=== PATIENT | female | born 1955 | race Caucasian/White ===

== ENCOUNTER 2024-05-28 12:44 | Outpatient (AMB) | payer MEDICARE, SELFPAY ==
--- NOTE | 2024-05-28 12:53 | A.OFFVIS_ITS ---
Vital Signs 05/28/24 12:57 Height 5 ft 2 in Weight 213 lb 8 oz BMI 39.0 BP 138/80 Blood Pressure Location Lt brachial Position Sitting Pulse 89 Pulse Source Pulse Oximeter Pulse Oximetry (%) 95 Oxygen Delivery Method Room Air Intake Visit Reasons: OSTEOARTHRITIS Intake Note: patient statednew pain in left side of neck on/off x2m Allergies codeine Allergy (Mild, Verified 05/28/24 12:59) intolerance latex Allergy (Mild, Verified 05/28/24 13:00) Hives shellfish derived Allergy (Mild, Verified 05/28/24 13:00) Unknown HPI HPI OSTEOARTHRITIS: Details: Last cortisone injections in bilateral knees lasted 6 months. She uses Tylenol 1000 mg b.i.d.. She also uses diclofenac gel PRN. She is experiencing neck discomfort with range of motion in last couple of months. [facility], [facility] Medical History Asthma Osteoarthritis, localized, knee Osteoarthritis, localized, hand Cervicalgia Surgical History Hx of cholecystectomy H/O colonoscopy Physical Exam Vital Signs: Last Vital Signs Pulse 89 05/28/24 12:57 BP 138/80 05/28/24 12:57 Pulse Ox 95 05/28/24 12:57 Oxygen Delivery Method Room Air 05/28/24 12:57 BMI result Body Mass Index 39.0 Const Other: General: Comfortable Skin: No lesions seen MSK: Tender trapezius bilaterally. No tenderness of cervical spinous process or paraspinal muscles. She has limited full flexion with pain. She has full cervical rotation but with pain. She has full extension of cervical spine. Tender to palpate bilateral knees. Bilateral hypertrophy of knees. Knee flexion 90 degrees bilateral. Office Procedures AMB Joint Injection/Aspiration Joint Injection/Aspiration Details: Right knee joint Prep: site was prepped using aseptic technique Injected: 40 mg of, Kenalog, with 1 mL of and 1% plain lidocaine Procedure: The patient tolerated the procedure well. Postprocedure protocol was discussed with patient. Coding 04046 - Bilateral Large Joint Procedure code (CPT) selection complete AMB Joint Injection/Aspiration Joint Injection/Aspiration Details: Left knee joint Prep: site was prepped using aseptic technique Injected: 40 mg of, Kenalog, with 1 mL of and 1% plain lidocaine Procedure: The patient tolerated the procedure well. Postprocedure protocol was discussed with patient. Coding 10545 - Bilateral Large Joint Procedure code (CPT) selection complete Office Meds lidocaine (PF) 10 mg/mL (1 %) injection solution Performing Provider: Win Martinez MD Performing Location: [facility] [place] [facility] Administered by: Win Martinez MD on 05/28/24 22:10 Dose Route Admin Location Dispensed Lot Number Expiration Date [facility] [employer] 10 mg Infiltration 2 mL [id number] [employer] Kenalog 40 mg/mL suspension for injection Performing Provider: Win Martinez MD Performing Location: [facility] [place] [facility] Administered by: Win Martinez MD on 05/28/24 22:10 Dose Route Admin Location Dispensed Lot Number Expiration Date [facility] [employer] 40 mg intra-articular 1 mL AP [id number] [employer] lidocaine (PF) 10 mg/mL (1 %) injection solution Performing Provider: Win Martinez MD Performing Location: [facility] [place] [facility] Administered by: Win Martinez MD on 05/28/24 22:10 Dose Route Admin Location Dispensed Lot Number Expiration Date [facility] [employer] 10 mg Infiltration 2 mL [id number] [employer] Kenalog 40 mg/mL suspension for injection Performing Provider: Win Martinez MD Performing Location: [facility] [place] [facility] Administered by: Win Martinez MD on 05/28/24 22:10 Dose Route Admin Location Dispensed Lot Number Expiration Date [facility] [employer] 40 mg intra-articular 1 mL AP [id number] [employer] Assessment & Plan Assessment & Plan (1) Osteoarthritis of knees, bilateral: Comment: Pain is uncontrolled. Code(s): M17.0 - Bilateral primary osteoarthritis of knee Category: Medical Qualifiers: Osteoarthritis type: primary Qualified Code(s): M17.0 - Bilateral primary osteoarthritis of knee Plan: Patient received bilateral knee cortisone injections Continue Tylenol 1000 mg b.i.d. Continue diclofenac gel 1% p.r.n. 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 We discussed conservative management. Code(s): S46.819A - Strain of other muscles, fascia and tendons at shoulder and upper arm level, unspecified arm, initial encounter Category: Medical Qualifiers: Encounter type: initial encounter Laterality: unspecified laterality Qualified Code(s): S46.819A - Strain of other muscles, fascia and tendons at shoulder and upper arm level, unspecified arm, initial encounter Plan: PT ordered. PT requisition given to patient as patient prefers to have PT locally in [place]. Continue to apply heat to neck PRN Return to clinic in 6 months Orders: Orders PT Evaluation and Treatment Today S46.819A - Strain of other muscles, fascia and tendons at shoulder and upper arm level, unspecified arm, initial encounter AMB Joint Injection/Aspiration Today M17.0 - Bilateral primary osteoarthritis of knee AMB Joint Injection/Aspiration Today M17.0 - Bilateral primary osteoarthritis of knee Medications: New Kenalog (triamcinolone acetonide) 40 mg intra-articular ONCE 1 mL 0RF NS M17.0 - Bilateral primary osteoarthritis of knee lidocaine (PF) 10 mg Infiltration ONCE 1 mL 0RF M17.0 - Bilateral primary osteoarthritis of knee lidocaine (PF) 10 mg Infiltration ONCE 1 mL 0RF M17.0 - Bilateral primary osteoarthritis of knee Kenalog (triamcinolone acetonide) 40 mg intra-articular ONCE 1 mL 0RF NS M17.0 - Bilateral primary osteoarthritis of knee Coding Level of Care Code Est Pt Level 4 (61470) Complex EM visit Add On G2211 Diagnoses Primary osteoarthritis of both knees M17.0 Osteoarthritis type: primary Strain of trapezius muscle, unspecified laterality, initial encounter S46.819A Encounter type: initial encounter Laterality: unspecified laterality CPT Codes Coding - 94857 - Bilateral Large Joint: 71565 - Bilateral Large Joint ([id number]) Coding - 39787 - Bilateral Large Joint: 58530 - Bilateral Large Joint ([id number])
[2024-05-28 12:57] VITALS: BP 138/80; PULSE 89; O2SAT 95; BMI 39.0
== END 2024-05-28 13:55 | disposition home or self-care (01) ==
PROVIDERS: PCP Family Medicine; Visit Provider Internal Medicine Rheumatology
DX: M17.0 Bilateral primary osteoarthritis of knee (principal); S46.819A Strain of other muscles, fascia and tendons at shoulder and upper arm level, unspecified arm, initial encounter
CPT/HCPCS: 20610; 99214; G2211

== ENCOUNTER → 2024-05-28 12:44 | Outpatient (BNVA) | payer MEDICARE, SELFPAY | PROVIDERS: PCP Family Medicine; Visit Provider Internal Medicine Rheumatology | DX: M17.0 Bilateral primary osteoarthritis of knee (principal); S46.819A Strain of other muscles, fascia and tendons at shoulder and upper arm level, unspecified arm, initial encounter | CPT/HCPCS: 20610; 99212; J2003; J3300 ==

== ENCOUNTER 2024-11-26 12:36 | Outpatient (AMB) | payer MEDICARE, SELFPAY ==
--- NOTE | 2024-11-26 12:38 | A.OFFVIS_ITS ---
Vital Signs 11/26/24 12:43 Height 5 ft 2 in Weight 215 lb BMI 39.3 BP 130/76 Blood Pressure Location Rt brachial Position Sitting Pulse 88 Pulse Source Pulse Oximeter Pulse Oximetry (%) 97 Oxygen Delivery Method Room Air Intake Visit Reasons: 6 mo follow up Intake Note: patient stated new pain in left side of neck on/off x2m Allergies codeine Allergy (Mild, Verified 11/26/24 12:44) intolerance latex Allergy (Mild, Verified 11/26/24 12:44) Hives shellfish derived Allergy (Mild, Verified 11/26/24 12:44) Unknown HPI HPI 6 mo follow up: Details: Knee pain started acting up after her trip from [facility], 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 She was walking a lot during her trip. She continues to use Tylenol Arthritis 1300 mg twice a day and diclofenac gel PRN pain without benefit. [facility] Medical History Asthma Osteoarthritis, localized, knee Osteoarthritis, localized, hand Cervicalgia Surgical History Hx of cholecystectomy H/O colonoscopy Physical Exam Vital Signs: Last Vital Signs Pulse 88 11/26/24 12:43 BP 130/76 11/26/24 12:43 Pulse Ox 97 11/26/24 12:43 Oxygen Delivery Method Room Air 11/26/24 12:43 BMI result Body Mass Index 39.3 Const Other: General: Comfortable Skin: No lesions seen MSK: Tender to palpate bilateral knees. Right knee [id number] effusion with Church's cyst present. Bilateral hypertrophy of knees. Knee flexion 90 degrees bilateral. Office Procedures AMB Joint Injection/Aspiration Coding 61738 - Bilateral Large Joint Procedure code (CPT) selection complete AMB Joint Injection/Aspiration Joint Injection/Aspiration Details: Bilateral knee joints Prep: site was prepped using aseptic technique Injected into each joint: 40 mg of, Kenalog, with 1 mL of and 1% plain lidocaine Procedure: Informed verbal consent was obtained. The patient tolerated the procedure well. Postprocedure protocol was discussed with patient. Coding 80752 - Bilateral Large Joint Procedure code (CPT) selection complete Office Meds lidocaine (PF) 10 mg/mL (1 %) injection solution Performing Provider: Win Martinez MD Performing Location: [facility] [place] [facility] Administered by: Win Martinez MD on 11/26/24 14:51 Dose Route Admin Location Dispensed Lot Number Expiration Date [facility] [employer] 20 mg Infiltration 2 mL [id number] [employer] Total Dispensed Waste 2 mL 0 % Kenalog 40 mg/mL suspension for injection Performing Provider: Win Martinez MD Performing Location: [facility] [place] [facility] Administered by: Win Martinez MD on 11/26/24 14:51 Dose Route Admin Location Dispensed Lot Number Expiration Date [facility] [employer] 40 mg intra-articular 1 mL [place] [id number] L [employer] Total Dispensed Waste 1 mL 0 % lidocaine (PF) 10 mg/mL (1 %) injection solution Performing Provider: Win Martinez MD Performing Location: [facility] [place] [facility] Administered by: Win Martinez MD on 11/26/24 14:51 Dose Route Admin Location Dispensed Lot Number Expiration Date [facility] [employer] 20 mg Infiltration 2 mL [id number] [employer] Total Dispensed Waste 2 mL 0 % Kenalog 40 mg/mL suspension for injection Performing Provider: Win Martinez MD Performing Location: [facility] [place] [facility] Administered by: Win Martinez MD on 11/26/24 14:51 Dose Route Admin Location Dispensed Lot Number Expiration Date [facility] [employer] 40 mg intra-articular 1 mL [place] [id number] L [employer] Total Dispensed Waste 1 mL 0 % Assessment & Plan Assessment & Plan (1) Osteoarthritis of knees, bilateral: Comment: Pain is uncontrolled. Code(s): M17.0 - Bilateral primary osteoarthritis of knee Category: Medical Qualifiers: Osteoarthritis type: primary Qualified Code(s): M17.0 - Bilateral primary osteoarthritis of knee Plan: Patient received bilateral cortisone injections this visit Continue Tylenol 1300 mg twice a day Continue diclofenac gel 1% applied to affected area PRN pain Continue to ice knee as needed Continue home exercise program Return to clinic in 6 months Orders: Orders AMB Joint Injection/Aspiration Today M17.0 - Bilateral primary osteoarthritis of knee AMB Joint Injection/Aspiration Today M17.0 - Bilateral primary osteoarthritis of knee Medications: Changed From diclofenac sodium 1% apply to single elbow, wrist or hand; for hand includes palm/fingers/back of hand 2 grams topical QID To diclofenac sodium 1% apply to affected area every 4-6 hours PRN pain 2 grams topical QID 100 grams 11RF From diclofenac sodium 1% apply to affected area every 4-6 hours PRN pain 2 grams topical QID 100 grams 11RF To diclofenac sodium 1% apply to affected area every 4-6 hours PRN pain. Dispense this rx 4 grams topical QID 100 grams 11RF Coding Level of Care Code Est Pt Level 3 (72390) Complex EM visit Add On G2211 Diagnoses Primary osteoarthritis of both knees M17.0 Osteoarthritis type: primary CPT Codes Coding - 69479 - Bilateral Large Joint: 81459 - Bilateral Large Joint ([id number]) Coding - 46351 - Bilateral Large Joint: 42795 - Bilateral Large Joint ([id number])
[2024-11-26 12:43] VITALS: BP 130/76; PULSE 88; O2SAT 97; BMI 39.3
--- OUTSIDE RECORDS SUMMARY | 2024-11-26 13:27 | XMS_ITS | Data Portability ---
Author Organization [facility], [facility] Address [address] [place] [address] Care Team Providers Care Martial Arts Instructor Name Role Phone MATT COUCH Primary Care Provider Assessment Encounter Date Assessment Date Assessment LastModified by Organization Details LastModified Time 03/30/2016 03/30/2016 61yo woman, with a history of class II obesity, migraines, hypothyroidism, kindly referred by Dr. Flores for an inability to lose weight. Lab noted: 02/11/15 tsh 2.1. Because Ms. James has not noticed a substantial benefit from levothyroxine 25mcg daily, we will trial off this medication. Seabrook's syndrome may be excluded, though this is unlikely. Diabetes will be assessed due to polyuria. We discussed an exercise and diet goal, and nutrition consult is encouraged. Weight loss medication options were discussed, however she declines this due to risks of diarrhea or dependence. [email or web address] Not available 03/30/2016 15:42:34 05/31/2016 05/31/2016 Nutrition Diagnosis: overweight/obesity related to: excess oral intake; as evidenced by pt self-reported dietary recall, BMI >30 Pt here today for initial nutrition visit, states she has been struggling with fatigue and difficulty losing weight, seeking review of diet and suggestions for any further lifestyle changes. She suspects she might have sleep apnea - is having sleep study soon. She emphasizes including protein and complex carbs in each meal for stable blood sugar, avoids skipping meals or going too long between meals, and eats large amounts of vegetables. Avoids gluten - causes bloating for her. Partner does most cooking, makes homemade gluten free items - for example whole cornmeal based bread with no flour, sugar, etc. She has noticed small weight loss since starting lele video occasionally at home. Discussed calorie recommendations for maintenance vs weight loss, importance of checking portion sizes and increasing physical activity to help maintain calorie deficit. [email or web address] Not available 06/01/2016 13:58:24 07/06/2016 07/06/2016 61yo woman, with a history of class II obesity, migraines, hypothyroidism, kindly referred by Dr. Flores for an inability to lose weight. Lab noted: 07/04/16 tsh 1.7, 03/30/16 glc 93mg/dL, cr 0.8, tsh 1.5, 05/28/16 salivary cortisol 0.04mcg/dL(Ref 10pm, 1am <= 0.09) , 05/30/16 salivary cortisol < 0.03mcg/dL. Normal midnight salivary cortisol twice makes Rakel's syndrome unlikely. Glucose is normal. Thyroid hormone is normal. Ms. Leblanc does not require thyroid hormone and has splendidly lost 5lb over 3mo through lifestyle changes. I am pleased that she will be treated for SANDRA with cpap, and she will return as needded. ty Not available 07/06/2016 14:59:36 Plan of Treatment Reminders Order Date Submit Date Provider Last Modified By Organization Details Last Modified Time Details Appointments None recorded. Lab BMP, serum or plasma 2015 016 [facility], [address] [place] [address], [address], 6 04:09:36 cortisol, saliva - cc Dr. Flores [address] [facility], [address] [place] [address], [address], 7 13:50:21 TSH, serum or plasma - cc CASANDRA Flores 2015 016 [facility], [address] [place] [address], [address], 6 04:09:14 thyroid stimulating hormone (TSH) [address] [facility], [address] [place] [address], [address], 3 04:35:05 C4 complement [address] [facility], [address] [place], [address], 3 04:35:[address] [facility], [address] [place], [address], 3 04:35:05 transglutam inase Ab (iga), tissue [address] [facility], [address] [place] [address], [address], 3 04:35:05 creatine kinase (CK), total [address] [facility], [address] [place] [address], [address], 3 04:35:[address] [facility], [address] [place], [address], 3 04:35:05 ever screen [address] [facility], [address] [place] [address], [address], 3 04:35:05 C3 complement [address] [facility], [address] [place] [address], [address], 3 04:35:05 lyme screen with reflex [address] [facility], [address] [place] [address], [address], 3 04:35:09 Referral medical nutrition therapy referral 2015 016 [email or web address] Not available 7 10:01:58 Procedures None recorded. Surgeries None recorded. Imaging None recorded. Medication Orders Vicodin 5 mg-500 mg tablet 2010 011 Not available 6 15:01:13 Patient TargetsNo targets recorded. Patient Instructions Encounter Date Encounter Id Patient Instructions Last Modified By Organization Details Last Modified Time 03/30/2016 [id number] -stop levothyroxine 50mcg tab, 1/2 tab 25mcg by mouth daily -tsh check now and in 3mo -fasting glucose -add dance dvd once weekly to start, lele -try unsweetened yogurt with non dehydrated fruit I suggest testing your salivary cortisol levels twice in order to evaluate for Seabrook's syndrome. Saliva should be collected on 2 separate evenings between 11pm and midnight. Please test on a quiet night at home when you are about to go to sleep. Do not smoke or chew tobacco on the day of the test. Do not collect if your sleep schedule is changing, you go to sleep well after midnight, or if you are recently sick or stressed. Do not brush your teeth before collecting the sample. Additional instructions from [employer] follow: 1. Collect saliva no earlier than 30 minutes after eating or drinking. 2. Hold the Salivette at the rim of the suspended insert and remove the stopper. 3. Remove the swab from the Salivette 4. Collect the saliva by gently chewing on the swab for one minute or keep the swab in your mouth until you feel that you can no longer prevent yourself from swallowing the saliva produced. 5. Return the saturated swab to the suspended insert and close the Salivette(R) firmly with the stopper. 6. If the specimen cannot reach the laboratory immediately after collection, the specimen must be stored refrigerated. Please bring the specimen to the lab as soon as possible because the specimen is stable for 7 days when refrigerated. If collecting multiple samples, submit each collection on a separate requisition, with the time collected recorded on the requisition and the specimen collection device. [email or web address] Not available 03/30/2016 15:38:00 05/31/2016 [id number] - continue lele videos - increase to twice a week - [id number] calories/day gave 1200 calorie sample meal plans [email or web address] Not available 06/01/2016 13:58:37 Time in: 2:20 Time out: 3:15 Total minutes with patient: 55 [email or web address] Not available 06/01/2016 14:00:09 07/06/2016 [id number] -no need for thyroid hormone -zoomba -portion control -congratulations on your weight loss of 5lb in 3mo [email or web address] Not available 07/06/2016 15:00:08 Reason for Referral Medical Nutrition Therapy Re ferral for Abnormal weight gain help with losing weight Referring Physician: Bang Phelps, Endocrinology, Encounter Date: 03/30/2016 Results Created Date Observation Date Name Description Value Unit Range Abnormal Flag Note LastModifiedBy Organization Detail LastModifiedTime 05/06/20 10 05/06/2010 CBC WBC 7.1 K/ L 4.0-10 .0 Not Available [address], [address], 05/06/2010 16:10:42 05/06/20 10 05/06/2010 CBC RBC 4.93 M/ L 3.93-5 .22 Not Available [address], [address], 05/06/2010 16:10:42 05/06/20 10 05/06/2010 CBC HGB 14.4 g/dL 11.2-1 5.7 Not Available [address], [address], 05/06/2010 16:10:42 05/06/20 10 05/06/2010 CBC HCT 42.7 % 34.1-4 4.9 Not Available [address], [address], 05/06/2010 16:10:42 05/06/20 10 05/06/2010 CBC MCV 86.6 L 79.4-9 4.8 Not Available [address], [address], 05/06/2010 16:10:42 05/06/20 10 05/06/2010 CBC MCH 29.2 pg 25.6-3 2.2 Not Available [address], [address], 05/06/2010 16:10:42 05/06/20 10 05/06/2010 CBC MCHC 33.7 g/dL 32.2-3 5.5 Not Available [address], [address], 05/06/2010 16:10:42 05/06/20 10 05/06/2010 CBC plt 232.0 K/ L 182.0- 369.0 Not Available [address], [address], 05/06/2010 16:10:42 05/06/20 10 05/06/2010 CBC MPV 10.7 9.4-12 .3 Not Available [address], [address], 05/06/2010 16:10:42 05/06/20 10 05/06/2010 CBC neut% 59.6 % 34.0-7 1.1 Not Available [address], [address], 05/06/2010 16:10:42 05/06/20 10 05/06/2010 CBC neut# 4.3 1.6-6. 1 Not Available [address], [address], 05/06/2010 16:10:42 05/06/20 10 05/06/2010 CBC lymph % 28.5 % 19.3-5 1.7 Not Available [address], [address], 05/06/2010 16:10:42 05/06/20 10 05/06/2010 CBC lymph # 2.0 K/ L 1.2-3. 7 Not Available [address], [address], 05/06/2010 16:10:42 05/06/20 10 05/06/2010 CBC mono% 8.0 % 4.7-12 .5 Not Available [address], [address], 05/06/2010 16:10:42 05/06/20 10 05/06/2010 CBC mono# 0.6 0.2-0. 4 high Not Available [address], [address], 05/06/2010 16:10:42 05/06/20 10 05/06/2010 CBC eo% 3.1 % 0.7-5. 8 Not Available [address], [address], 05/06/2010 16:10:42 05/06/20 10 05/06/2010 CBC eo# 0.2 0.0-0. 4 Not Available [address], [address], 05/06/2010 16:10:42 05/06/20 10 05/06/2010 CBC baso% 0.8 % 0.1-1. 2 Not Available [address], [address], 05/06/2010 16:10:42 05/06/20 10 05/06/2010 CBC baso# 0.1 0.0-0. 1 high Not Available [address], [address], 05/06/2010 16:10:42 05/06/20 10 05/06/2010 CBC RDW-CV 12.5 % 11.7-1 4.4 Not Available [address], [address], 05/06/2010 16:10:42 05/06/20 10 05/09/2010 thyro id stimu latin g hormo ne (TSH) TSH 1.71 uIU/m L 0.50-6 .00 the ameri can colle ge of endoc rinol ogy and ameri can thyro id assoc iatio n recom mend goal TSH value s betwe en 1.0-2 .5 mIU/m L. Not Available [address], [address], 05/09/2010 10:42:05 12/17/20 10 05/09/2010 creat ine kinas e (CK), total CPK 71.0 U/L 21.0-2 15.0 Not Available [address], [address], 05/09/2010 11:28:36 05/06/20 10 05/09/2010 C4 compl ement complement component C4C 41 mg/dL 16-47 normal Not Available [facility] [address], [address], 05/09/2010 11:47:28 05/06/20 10 05/09/2010 C3 compl ement complement component C3C 139 mg/dL 90-180 normal Not Available [facility] [address], [address], 05/09/2010 11:47:28 05/06/20 10 05/09/2010 RENZO RENZO screen 0.62 0.00-0 .39 positive RENZO=s ample sent to Eve for ifa patte rn and titer . <0.4 -nega tive 0.40 - 1.10 -equi vocal >1.10 -posi tive Not Available [address], [address], 05/09/2010 17:20:43 05/06/20 10 05/09/2010 ever scree n ever-6 screen 0.52 <0.89 <0.9 -nega tive 0.9 - 1.09 -equi vocal >=1.1 0 -posi tive Not Available [address], [address], 05/09/2010 17:20:43 05/06/20 10 05/09/2010 trans gluta noble e Ab (iga) , tissu e tissue transglutami nase antibody, IgA <3 U/mL normal value expla natio n of test resul ts <5 negat jaylyn 5-8 equiv ocal >8 posit jaylyn Not Available [facility] [address], [address], 05/09/2010 18:25:37 05/06/20 10 05/10/2010 lyme disea se igg, igm borrelia burgdorferi Ab 0.40 <0.90 <=0.9 0 - negat jaylyn 0.91 - 1.09 - equiv ocal >=1.1 0 - posit jaylyn Not Available [address], [address], 05/10/2010 13:42:47 05/06/20 10 05/11/2010 RENZO titer &irvin latosha RENZO pattern NEGATI VE normal Not Available [facility] [address], [address], 05/11/2010 18:40:09 05/06/20 10 05/11/2010 RENZO titer &irvin latosha antinuclear antibodies <1:40 titer normal refer ence range <1:40 negat jaylyn 1:40- 1:80 low antib don level >1:80 eleva karina antib don level Not Available [facility] [address], [address], 05/11/2010 18:40:09 03/30/20 16 03/31/2016 BMP, serum or plasm a glucose 93 mg/dL 70-100 Not Available [address], [address], 03/31/2016 10:25:56 03/30/20 16 03/31/2016 BMP, serum or plasm a BUN 16 mg/dL 7-18 Not Available [address], [address], 03/31/2016 10:25:56 03/30/20 16 03/31/2016 BMP, serum or plasm a creatinine 0.8 mg/dL 0.8-1. 3 Not Available [address], [address], 03/31/2016 10:25:56 03/30/20 16 03/31/2016 BMP, serum or plasm a B/C 20.0 ratio Not Available [address], [address], 03/31/2016 10:25:56 03/30/20 16 03/31/2016 BMP, serum or plasm a GFR -non 81.1 mL/mi n Recom jackson d GFR by the Natio nal Kidne y Found ation >60 mL/mi n/1.7 3m2 - Josee l <60 mL/mi n/1.7 3m2 - Chron ic Kidne y Disea se <15 mL/mi n/1.7 3m2 - Kidne y Failu re Not Available [address], [address], 03/31/2016 10:25:56 03/30/20 16 03/31/2016 BMP, serum or plasm a GFR - if 93.3 mL/mi n For Afric an Ameri can patie nts: Resul ts Multi plied by 1.21 Not Available [address], [address], 03/31/2016 10:25:56 03/30/20 16 03/31/2016 BMP, serum or plasm a sodium 143 mmol/ L 136-14 5 Not Available [address], [address], 03/31/2016 10:25:56 03/30/20 16 03/31/2016 BMP, serum or plasm a potassium 4.2 mmol/ L 3.5-5. 1 Not Available [address], [address], 03/31/2016 10:25:56 03/30/20 16 03/31/2016 BMP, serum or plasm a chloride 105 mmol/ L 96-107 Not Available [address], [address], 03/31/2016 10:25:56 03/30/20 16 03/31/2016 BMP, serum or plasm a anion gap 8.5 5.0-15 .0 Not Available [address], [address], 03/31/2016 10:25:56 03/30/20 16 03/31/2016 BMP, serum or plasm a CO2 30 mmol/ L 21-32 Not Available [address], [address], 03/31/2016 10:25:56 03/30/20 16 03/31/2016 BMP, serum or plasm a calcium 8.7 mg/dL 8.5-10 .3 Not Available [address], [address], 03/31/2016 10:25:56 03/30/20 16 03/31/2016 TSH, serum or plasm a TSH 1.49 uIU/m L 0.50-6 .00 The Ameri can Colle ge of Endoc rinol ogy and Ameri can Thyro id Assoc iatio n recom mend goal TSH value s betwe en 0.4-4 .0 mIU/m L. Not Available [address], [address], 03/31/2016 12:53:20 05/28/19 17 06/09/2016 corti renee, saliv a cortisol, lc/MS/MS,patricia nico 0.04 mcg/d L 8-10 AM: 0.04- 0.56 mcg/d L noon- 2 PM: < OR = 0.21 mcg/d L 4-6 PM: < OR = 0.15 mcg/d L 10 PM-1 AM: < OR = 0.09 mcg/d L This test was devel oped and its alfredo tical perfo rmanc e modesto cteri stics have been deter mined by [facility]i surya Tamayo . It has not been clear ed or appro surya by FDA. This assay has been valid ated pursu ant to the CLIA regul ation s and is used for clini tamy purpo ses. Not Available [facility] [address], [address], 06/09/2016 13:50:22 05/30/19 17 06/09/2016 zulay duran, saliv a cortisol, lc/MS/MS,patricia nico <0.03 mcg/d L 8-10 AM: 0.04- 0.56 mcg/d L noon- 2 PM: < OR = 0.21 mcg/d L 4-6 PM: < OR = 0.15 mcg/d L 10 PM-1 AM: < OR = 0.09 mcg/d L This test was devel oped and its alfredo tical perfo rmanc e modesto cteri stics have been deter mined by [facility] Tamayo . It has not been clear ed or appro surya by FDA. This assay has been valid ated pursu ant to the CLIA regul ation s and is used for clini tamy purpo ses. Not Available [facility] [address], [address], 06/09/2016 13:50:21 07/04/19 17 07/04/2016 TSH, serum or plasm a TSH 1.65 uIU/m L 0.50-6 .00 The Ameri can Colle ge of Endoc rinol ogy and Ameri can Thyro id Assoc iatio n recom mend goal TSH value s betwe en 0.4-4 .0 mIU/m L. Not Available [address], [place], [address], 07/04/2016 16:32:24 Result Notes None recorded. Problems Name Problem SNOMED Code Status Onset Date Resolution Date Notes Provider Name and Address Organization Details Recorded Time Cough 41339396 Completed 200504/09/2013 Not Available [facility] 3 02:01:08 Precordial pain 90122937 Completed 200604/09/2013 Not Available [facility] 3 02:02:30 Lateral epicondyli tis 545782511 Completed 200604/09/2013 Not Available [facility] 3 02:02:34 Pain of multiple joints 87564883 Completed 04/09/2013 Not Available [facility] 3 02:02:26 Measuremen t finding outside reference range 046798524 Completed 04/09/2013 Not Available [facility] 3 02:03:25 Acute cystitis 72469291 Completed 200504/09/2013 Not Available [facility] 3 02:02:32 Inflammato ry polyarthro thien 455810794 Active Not Available [facility] 3 03:13:09 Allergic rhinitis 47471464 Active 2005 Not Available [facility] 3 03:13:09 Sprain of ankle 63993957 Completed 200604/09/2013 Not Available [facility] 3 02:02:51 Allergic asthma without status asthmaticu s 70683236 Active 2005 Not Available [facility] 3 03:13:09 Obesity 736653101 Active 2006 Not Available [facility] 3 03:13:09 Neoplasm of uncertain behavior of skin 99030177 Completed 200604/09/2013 Not Available [facility] 3 02:01:52 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 Not Available [facility] 3 03:13:09 Common cold 98105367 Completed 200504/09/2013 Not Available [facility] 3 02:00:29 Disturbanc e of salivary secretion 65363597 Active Not Available [facility] 3 03:13:09 On examinatio n - a rash Completed 200504/09/2013 Not Available [facility] 3 02:00:49 Inflamed seborrheic keratosis 081407438 Completed 200604/09/2013 Not Available [facility] 3 02:03:38 Acute maxillary sinusitis 39419094 Completed 200604/09/2013 Not Available [facility] 3 02:01:43 Dysuria 50374169 Completed 200504/09/2013 Not Available [facility] 3 02:02:00 Low back pain 591616594 Active Not Available [facility] 3 03:13:09 Cellulitis and abscess of upper arm 986255764 Completed 200604/09/2013 Not Available [facility] 3 02:03:57 Primary fibromyalg ia syndrome 32036430 Active 2005 Not Available [facility] 3 03:13:09 Problem Notes None recorded. Procedures Surgical History Date Name Laterality Status Provider Name and Address Organization Details Recorded Time 05/21/19 15 Cholecystectomy completed GRACE Marquez [address] [place] [address], [phone], [facility] 03/30/2016 14:58:48 05/27/19 11 Epicondyle (Left) Injection completed Kendall Ross MD [address] [place] [address], [phone], [facility] 05/27/2010 09:08:37 05/21/18 70 Tonsillectomy completed GRACE Marquez [address] [place] [address], [phone], [facility] 03/30/2016 14:59:00 Imaging Results None recorded. Procedure Notes None recorded. Medical Equipment None Reported. Allergies Allergen ID Allergen Name Allergen Category Reaction Reaction Severity Criticality Documentation Date Start Date Code Code System Note Provider Name and Address Organization Details Recorded Time 765231 latex environme nt,medica tion Not available Not available Not available 03/30/2016 34776 91 RxNorm Minoo Palma RN BSN [address] [facility] [place], [address], [facility] 6 14:59:33 677905 codeine medicatio n vomiting Not available Not available 03/30/2016 2670 RxGRACE Gonzalez [address] [facility] [place], [address], [facility] 6 14:59:48 Medications Name Sig Start Date Stop Date Status Note LastModified by Organization Details LastModified Time carisopro dol 350 mg tablet 1 or 2 po q hs prn 07/09 completed Not Available Not Available Not Available amoxicill in 500 mg capsule 03/30 completed Not Available Not Available Not Available azithromy alvaro 250 mg tablet 03/30 completed Not Available Not Available Not Available Vicodin 5 mg-500 mg tablet Take 1 tablet every 6 hours by oral route. 03/30 completed Not Available Not Available Not Available Kenalog 0.1 % topical cream 2005 active Take applied topicall y 2 times a day Not Available Not Available Not Available prednison e 20 mg tablet TK 1 T PO QD. 03/30 completed Not Available Not Available Not Available Flonase 50 mcg/actua tion nasal spray,michelet pension 2006 active Take 2 spray(s) in each nostril once a day Not Available Not Available Not Available amoxicill in 500 mg tablet 07/06 completed Not Available Not Available Not Available benzonata te 100 mg capsule TK 1 C PO TID PRF COUGH FOR 10 DAYS. 03/30 completed Not Available Not Available Not Available levothyro xine 50 mcg tablet 07/06 completed Not Available Not Available Not Available furosemid e 20 mg tablet TK 1 T PO D 07/06 completed Not Available Not Available Not Available amoxicill in 875 mg-potass ium clavulana te 125 mg tablet 07/06 completed Not Available Not Available Not Available Bactrim DS 800 mg-160 mg tablet 2006 active Take 1 tab(s) orally 2 times a day Not Available Not Available Not Available azithromy alvaro 500 mg tablet TK 1 T PO QD FOR FIVE DAYS. 03/30 completed Not Available Not Available Not Available nitrofura ntoin monohydra te/macroc rystals 100 mg capsule 03/30 completed Not Available Not Available Not Available Flovent HFA 110 mcg/actua tion aerosol inhaler INHALE 2 PUFFS PO BID active Not Available Not Available No t Available ProAir HFA 90 mcg/actua tion aerosol inhaler INHALE 2 PUFFS QID PRF WHEEZING active Not Available Not Available No t Available ProChambe r USE UTD WITH INHALERS active Not Available Not Available No t Available Vitals Date Recorded Heart rate Systolic And Diastolic Provider Name and Address Organization Details Last Updated DateTime 05/27/2010 68 /min 104/64 mm[Hg] Jillian Reynolds LPN [facility] 05/27/2010 08:26:29 Date Recorded Body height Body weight Body mass index (BMI) Heart rate Systolic And Diastolic Provider Name and Address Organization Details Last Updated DateTime 07/06/2016 157.48 cm 84582.2 g 35.4 kg/m2 76 /min 104/60 mm[Hg] Jess Loredo RN [facility] 07/06/2016 14:34:43 Date Recorded Body weight Body height Body mass index (BMI) Heart rate Systolic And Diastolic Provider Name and Address Organization Details Last Updated DateTime 03/30/2016 92841.44 g 157.48 cm 36.3 kg/m2 66 /min 118/76 mm[Hg] Minoo Palma RN BSN [address] [place] [address], [phone] , [facility] 03/30/2016 15:03:56 Date Recorded Heart rate Systolic And Diastolic Provider Name and Address Organization Details Last Updated DateTime 05/06/2010 66 /min 110/62 mm[Hg] Jillian Reynolds LPN [facility] 05/06/2010 14:54:01 Social History Question Answer Notes LastModified by [email or web address] Details LastModified Time Tobacco Smoking Status Never Smoker Not Available [facility] 04/06/2011 04:54:19 Which Illicit Or Recreational Drugs Have You Used? None Information not available 03/30/2016 Sex: Unknown Functional Status Question Answer Note LastModified by [email or web address] Details LastModified Time What is your level of alcohol consumption? None Information not available 03/30/2016 What is your occupation? [employer] Information n ot available 04/06/2011 Mental Status None recorded. Family History Relationship Description Onset Age of this Age Resolved Age Notes LastModified by Organization Details LastModified Time Father Diabetes mellitus Not available 2015 14:55:18 Father Alcoholism Not availa ble 03/30/2016 14:55:48 Father Cerebrovascu lar accident 70 Not available 02/2016 14:57:54 Father Angina pectoris Not available 2015 14:56:27 Mother Diabetes mellitus Not available 2015 14:55:18 Mother Alcoholism Not availa ble 03/30/2016 14:55:48 Mother Congenital myasthenic syndrome Not available 2015 14:57:05 Mother Hypothyroidi sm [email or web address] Not available 2015 15:07:39 Mother Fibromyalgia [email or web address] Not avail able 03/30/2016 15:07:51 Brother Diabetes mellitus Not available 2015 14:55:18 Brother Diabetes mellitus Not available 2015 14:55:18 Brother Diabetes mellitus Not available 2015 14:55:18 Brother Alcoholism Not avail able 03/30/2016 14:55:48 Brother Alcoholism Not avail able 03/30/2016 14:55:48 Brother Alcoholism Not avail able 03/30/2016 14:55:48 Notes:myaesthenia gravis; Di abetes Medical History Condition Response Hypothyroid Y NEUROLOGIC Fibromyalgia Y RHEUMATOLOGIC Y Gynecological HistoryNo gynecological history recorded. Obstetrics History GPAL:G 0 P 0 0 0 0 Past Encounters Encounter ID Performer Location Encounter Start Date Encounter Closed Date Diagnosis/Indication Diagnosis SNOMED-CT Code Diagnosis ICD10 Code Diagnosis Note [id number] Jeff Morales MD , [facility], OFFICE [address] [facility] [place] [address] 06/07/2005 09:30:35 06/07/2005 11:47:40 [id number] Jeff Morales MD , [facility], OFFICE [address] [place] [address] 07/24/2005 08:19:33 07/24/2005 13:52:36 [id number] Greer Guidry NP , [facility] [address] [place] [address] 10/10/2005 13:03:26 10/10/2005 16:53:39 [id number] Jeff Morales MD , [facility], OFFICE [address] [place] [address] 10/17/2005 09:22:02 10/17/2005 11:44:43 [id number] Mich Tan MD , [facility], OFFICE [address] [place] [address] 01/11/2006 13:12:21 01/11/2006 17:30:14 [id number] Sofia Couch PA-C , [facility], OFFICE [address] [place] [address] 05/31/2006 13:46:41 06/01/2006 10:31:17 [id number] Jeff Morlaes MD , [facility], OFFICE [address] [place] [address] 07/12/2006 08:32:04 07/12/2006 13:39:34 [id number] Jeff Morales MD [facility], OFFICE [address] [place] [address] 10/22/2006 17:11:44 10/23/2006 06:26:49 [id number] Abby Wagner MD [facility], OFFICE [address] [place] [address] 11/02/2006 08:45:44 11/02/2006 11:26:29 [id number] Arlette Elizondo MD [facility], OFFICE [address] [place] [address] 12/26/2006 10:24:18 12/27/2006 06:55:24 [id number] Omer Espana PA-C [facility], OFFICE [address] [place] [address] 01/01/2007 13:01:35 01/02/2007 06:49:29 [id number] Kendall Ross MD Rheumatol joseph, [address] [place] [address] 06/08/2009 13:24:08 06/15/2009 09:39:53 [id number] Kendall Ross MD Rheumat[facility] [place] [address] 05/06/2010 14:37:33 05/09/2010 09:33:24 [id number] Kendall Ross MD Rheumat[facility] [address] [place] [address] 05/27/2010 08:17:23 05/30/2010 09:46:19 [id number] Bang Phelps MD Endocrino logy, [facility] [address] [place] [address] 03/30/2016 14:43:27 03/30/2016 15:51:18 Abnormal weight gain [id number] R63.5 Excessive thirst 0197419 7 R63.1 Polyuria 43575114 R35.8 Fatigue 01820390 R53.83 Obesity 147646685 E66.9 Hypothyroidism 55804336 E03.9 -stop levothyrox ine 50mcg tab, 1/2 tab 25mcg by mouth daily-tsh check now and in 3mo Acanthosis nigricans 402 [id number] L83 [id number] Caren Wolff, Ms, Rdn, Ldn, CDE Nutrition -[facility] [address] [place] [address] 05/31/2016 14:16:37 06/02/2016 12:33:01 Abnormal weight gain 594082866 R63.5 [id number] Bang Phelps MD Endocrino logy, [facility] [address] [place] [address] 07/06/2016 14:03:40 07/06/2016 14:59:25 Abnormal weight gain 322874653 R63.5 -zoomba-po rtion control Fatigue 35564557 R53.83 Obesity 121259568 E66.9 Hypothyroidism 30229802 E03.9 -no need for thyroid hormone Health Concerns Section Related Observation LastModified by Organization Detai ls LastModified Time None Recorded Concern Status LastModified by Organization Details LastModified Time None Recorded Advance Directives Directive None Recorded Payers Insurance Date Sequence Insurance Name Policy Number Policy Abbasi Covered Member ID Abbasi Member ID Guarantor Name 07/09/2016 1 [facility] [place] (MEDICAID HMO) Josie James [id number] Josie James 07/09/2016 1 [facility] [id number] 01 Josie James [id number] Josie James 07/09/2016 1 [facility] [id number] Josie James [id number] Josie James Notes Date Note Type Note Provider Name and Address Organization Details Recorded Time 05/06/2010 text/html This is a patien t whom I saw once in consultation a year ago. She was having some musculoskeletal sx's and prominent mouth sx's suspected related to dryness. However, neg for Sjogren's antibodies. 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 Pt on her own discovered that low sugar, yeast free diet helped greatly. Today presents with fatigue, some mid and lower back pain with occasional radiation R knee region, and also specific L elbow pain. RENZO was found to be + 1:400 (speckled). Remote hx of episodic inflammatory arthritis, but no sx's of this. Kendall Ross MD [address] [place] [address], [phone], [facility] 05/08/2010 08:34:32 05/27/2010 text/html Pt seen recently with several ongoing sx's, among them L lat epicondylitis. Over past 2 weeks L elbow progressively severe to the point where she cannot sleep. aches all the time. Tennis elbow band does not help. typing painful. No local rash. No fever. Recent labs reviewed with pt: all normal. Kendall Ross MD [address] [place] [address], [phone], [facility] 05/27/2010 09:08:50 03/30/2016 text/html 60yo woman, with a history of class II obesity, migraines, hypothyroidism, kindly referred by Dr. Flores for an inability to lose weight. Lab noted: 02/11/15 tsh 2.1. Levothyroxine 50mcg by mouth daily. exhausted, pee constantly, she is thirsty she does not lose weight wehn walking miles she has been exhausted until 2013 when she started running fevers, she fell asleep driving at night; she works [employer], she naps at home she has a sleep study scheduled no gasping for air no snoring noted by partner she wakes up at night 1 to 2 times to urinate at night she is sometimes refreshed on waking, other times not she sleeps at 10 to 10:30pm sleep until 6am 7.5h nightly, 1 to 2h nap midday no sleep aids lt4 1/2 of 50mcg daily weight has been 98lb before children;turned 38yo, gained 5lb/year early 50s she was dancing, in the last 10y, she has had more issues keeping the weight off, she does not eat sugar, chocolate once in a while no carb as a rule most of diet is lean meat fruit vegetables; lots of big saladswheat makes her bloated brk corn bread with yogurt chobani vanilla and raisin or egg; some rice cereal ; oatmeallunch salad slices of meat rice and beans (1.5cups);supper cheese and apples or yogurt and celeryno alcoholat work apple noon exercise walking 1 to 2 times a week 2mi 20 to 30miyoga home several times a week 10 to 15minplanking for a min + easy bruising alwaysno red striae recent fractures (fingers broken as a kid and nose as a kid), no severe weakness joint pain of knees limiting in bed consistently 10:30pm or 11pm -add dance dvd once weekly to start, lele -try unsweetened yogurt with non dehydrated fruit Bang Phelps MD [address] [place] [address], [phone], [facility] 03/30/2016 15:44:39 05/31/2016 text/html Nutrition Encoun ter updatedReported bypatient.Patient HistoryPatient chief nutritional complaint:obesity Nutrtition/dietarySee scanned images for Diet Intake Summary; fatigue since mono etc in 2013 fibromyalgia, arthritis drinking enough water, herbal tea feels thirsty b - yogurt and oatmeal, sometimes an apple or pear . occ an egg. snacks - almonds, cheese, fresh fruit. occ veggies. lowfat flavored yogurt 2-3 pm - when gets home - fuad does most of the cooking. kale salad, homemade cornbread, meat or veggies, hummus, cheese. nighttime - salad or cup of soup. maybe a cup of pasta. snacks - dark chocolate , 2 pieces gluten - extremely bloated, constipation. Estimated Nutrient NeedsEnergy (kcals) 1700 (1400) Recent Lab testsFasting Blood Sugar: (93); TSH = 1.49 Physical Activity habitsstarted lele videos 1x/week so far Caren Wolff, Ms, Rdn, Ldn, CDE [address] [place], [phone], [facility] 06/01/2016 14:01:06 07/06/2016 text/html 61yo woman, with a history of class II obesity, migraines, hypothyroidism, kindly referred by Dr. Flores for an inability to lose weight. exercise improved her weight migraine a few weeks ago 07/04/16 tsh 1.7, 03/30/16 glc 93mg/dL, cr 0.8, tsh 1.5. Glucose is normal. Thyroid hormone is normal. she stopped lt4, no change in fatigue she lost 5lb over 3mo, she is tired,Dr. Awad found that she has slight sleep apnea, she will consider cpap,she got zoomba, she saw consulting technical director, eating wellshe will cut down on portions, women have more undiagnosed sleep apnea because of not complaining, really exhausted Bang Phelps MD [address] [place] [address], [phone], [facility] 07/06/2016 15:01:06 OBGyn Episode No OBEpisode recorded.
== END 2024-11-26 13:08 | disposition home or self-care (01) ==
LOC: HO.RHES 12:37
PROVIDERS: PCP Family Medicine; Visit Provider Internal Medicine Rheumatology
DX: M17.0 Bilateral primary osteoarthritis of knee (principal)
CPT/HCPCS: 20610; 99213

== ENCOUNTER → 2024-11-26 12:36 | Outpatient (BNVA) | payer MEDICARE, SELFPAY | PROVIDERS: PCP Family Medicine; Visit Provider Internal Medicine Rheumatology | DX: M17.0 Bilateral primary osteoarthritis of knee (principal) | CPT/HCPCS: 20610; 99212; J2003; J3300 ==

== ENCOUNTER 2025-03-26 13:47 | Outpatient (AMB) | payer MEDICARE, SELFPAY ==
--- NOTE | 2025-03-26 14:01 | A.OFFVIS_ITS ---
Vital Signs 03/26/25 14:02 Height 5 ft 2 in BP 130/70 Blood Pressure Location Rt brachial Position Sitting Pulse 99 Pulse Source Pulse Oximeter Pulse Oximetry (%) 95 Oxygen Delivery Method Room Air Intake Visit Reasons: cortisone inj bilateral knees/ MD req Intake Note: Patient presents today for an OA follow up. Accompanied by: Self / Same As Patient Allergies codeine Allergy (Mild, Verified 03/26/25 14:01) intolerance latex Allergy (Mild, Verified 03/26/25 14:01) Hives shellfish derived Allergy (Mild, Verified 03/26/25 14:01) Unknown HPI HPI cortisone inj bilateral knees/ MD req: Details: In December her leg twisted when she fell in a ditch. Since then she has been having increased right knee pain that has progressed to involving her left knee due to compensation. She has been using Tylenol, diclofenac gel and icing without relief. Her PCP did an x-ray that revealed osteoarthritis. She is having a hard time ambulating due to pain. She is not using assistive aids. [facility] Medical History Asthma Osteoarthritis, localized, knee Osteoarthritis, localized, hand Cervicalgia Surgical History Hx of cholecystectomy H/O colonoscopy Physical Exam Vital Signs: Last Vital Signs Pulse 99 03/26/25 14:02 BP 130/70 03/26/25 14:02 Pulse Ox 95 03/26/25 14:02 Oxygen Delivery Method Room Air 03/26/25 14:02 Const Other: General: Comfortable Skin: No lesions seen MSK: Tender to palpate bilateral knees. Bilateral knee effusions mild. Right knee is warm. Bilateral hypertrophy of knees. Knee flexion 90 degrees bilateral. Office Procedures AMB Joint Injection/Aspiration Joint Injection/Aspiration Details: Bilateral knee joints Prep: site was prepped using aseptic technique Injected into each joint: 40 mg of, Kenalog, with 1 mL of and 1% plain lidocaine Procedure: Informed verbal consent was obtained. The patient tolerated the procedure well. Postprocedure protocol was discussed with patient. Coding 02620 - Bilateral Large Joint Procedure code (CPT) selection complete AMB Joint Injection/Aspiration Coding 54606 - Bilateral Large Joint Procedure code (CPT) selection complete Office Meds lidocaine (PF) 10 mg/mL (1 %) injection solution Performing Provider: Win Martinez MD Performing Location: [facility] Administered by: Vikki Lemon RN on 03/26/25 14:44 Dose Route Admin Location Dispensed Lot Number Expiration Date [facility] Outside Sales Representative Insurance 1 mL Infiltration right knee 2 mL [id number] 10/18/26 51231-453-03 [employer] Total Dispensed Waste 2 mL 50 % Kenalog 40 mg/mL suspension for injection Performing Provider: Win Martinez MD Performing Location: [facility] Administered by: Vikki Lemon RN on 03/26/25 14:44 Dose Route Admin Location Dispensed Lot Number Expiration Date [facility] Outside Sales Representative Insurance 40 mg intra-articular right knee 1 mL [id number] 11/17/26 [address]- 1 [employer] Total Dispensed Waste 1 mL 0 % lidocaine (PF) 10 mg/mL (1 %) injection solution Performing Provider: Win Martinez MD Performing Location: [facility] Administered by: Vikki Lemon RN on 03/26/25 14:44 Dose Route Admin Location Dispensed Lot Number Expiration Date [facility] Outside Sales Representative Insurance 1 mL Infiltration left knee 2 mL [id number] 10/18/26 75563-911-85 [employer] Total Dispensed Waste 2 mL 50 % Kenalog 40 mg/mL suspension for injection Performing Provider: Win Martinez MD Performing Location: [facility] Administered by: Vikki Lemon RN on 03/26/25 14:44 Dose Route Admin Location Dispensed Lot Number Expiration Date [facility] Outside Sales Representative Insurance 40 mg intra-articular left knee 1 mL [id number] 11/17/26 [address]-4 [employer] Total Dispensed Waste 1 mL 0 % Assessment & Plan Assessment & Plan (1) Osteoarthritis of knees, bilateral: Comment: Flare. Code(s): M17.0 - Bilateral primary osteoarthritis of knee Category: Medical Qualifiers: Osteoarthritis type: primary Qualified Code(s): M17.0 - Bilateral primary osteoarthritis of knee Plan: Patient received bilateral cortisone injections this visit Continue Tylenol 1300 mg twice a day Continue diclofenac gel 1% applied to affected area PRN pain Continue to ice knee as needed Continue home exercise program Return to clinic in 3 months Orders: Orders AMB Joint Injection/Aspiration Today M17.0 - Bilateral primary osteoarthritis of knee AMB Joint Injection/Aspiration Today M17.0 - Bilateral primary osteoarthritis of knee Coding Level of Care Code Est Pt Level 3 (10264) Complex EM visit Add On G2211 Diagnoses Primary osteoarthritis of both knees M17.0 Osteoarthritis type: primary CPT Codes Coding - 51459 - Bilateral Large Joint: 94361 - Bilateral Large Joint ([id number]) Coding - 02964 - Bilateral Large Joint: 84539 - Bilateral Large Joint ([id number])
[2025-03-26 14:02] VITALS: BP 130/70; PULSE 99; O2SAT 95
--- OUTSIDE RECORDS SUMMARY | 2025-03-26 16:47 | XMS_ITS | Clinical Summary ---
Author Organization [facility] Address [address] [place] [id number] Phone Care Team Providers Care Web Production Assistant Name Role Phone Faraz Briceno MD Primary Care Provider [phone] Social History Tobacco Use Types Packs/Day Years Used Date Smoking Tobacco: Never Assessed Education Answer Date Recorded Are you interested in more education? Not on niranjan e 06/04/2024 Are you concerned about learning? Not on file 06/04/2024 No 06/04/2024 No 06/04/2024 Digital Access Answer Date Recorded No 06/04/2024 No 06/04/2024 Reliable internet access at home? Not on file 06/04/2024 Device with a working camera? Not on file Comments Unknown Sex and Gender Information Value Date Recorded Sex Assigned at Not on file Legal Sex Female 9:58 PM EDT Gender Identity Not on file Sexual Orientation Not on file Plan of Treatment Health Maintenance Due Date Last Done Comments Adult Td,Tdap Booster 1953 LIPID PANEL 1953 DEPRESSION SCREENING 1965 SMOKING Hx and SMOKELESS TOB ACCO SCREENING 1966 HEPATITIS C SCREENING 1971 MAMMOGRAM 1993 COLONOSCOPY 1998 FIT TEST 1998 FOBT 1998 SIGMOIDOSCOPY 1998 VIRTUAL COLONOSCOPY 1998 PNEUMOCOCCAL VACCINES (50+ y ears) (1 of 1 - PCV) 2003 ZOSTER VACCINES (1 of 2) 2003 OSTEOPOROSIS SCREENING INITI AL (ONE-TIME) 2018 INFLUENZA VACCINE (#1) 2024 COVID-19 VACCINE ( - 2024-2 6 season) 2025 COLOGUARD 09/15/2026 09/16/2023 COLORECTAL CANCER SCREENING 09/15/2026 RSV VACCINE (1 - 1-dose 75+ series) 02/06/2028 HEPATITIS A VACCINES Aged Out No long er eligible based on patient's age to complete this topic HIB VACCINES Aged Out No longer eligi ble based on patient's age to complete this topic MENINGOCOCCAL VACCINES (ACWY) Aged Out No longer eligible based on patient's age to complete this topic MENINGOCOCCAL VACCINES (B) Aged Out N o longer eligible based on patient's age to complete this topic Medical Devices Not on file Insurance [employer] POS PPO REPLACEMENT [employer] POS PPO REPLACEMENT MEDICARE POS PPO REPLACEMENT MEDICARE POS PPO REPLACEMENT MEDICARE POS PPO REPLACEMENT MEDICARE POS PPO REPLACEMENT Care Teams Web Production Assistant Relationship Specialty Start Date End Date Faraz Briceno MD [address] [place] [id number] PCP - General Family Medicine 06/02/24 Additional Source Comments The information contained in this document represents components of the legal health record. It is not the complete legal health record[facility]
== END 2025-03-26 14:38 | disposition home or self-care (01) ==
LOC: HO.RHES 13:48
PROVIDERS: PCP Family Medicine; Visit Provider Internal Medicine Rheumatology
DX: M17.0 Bilateral primary osteoarthritis of knee (principal)
CPT/HCPCS: 20610; 99213

== ENCOUNTER → 2025-03-26 13:47 | Outpatient (BNVA) | payer MEDICARE, SELFPAY | PROVIDERS: PCP Family Medicine; Visit Provider Internal Medicine Rheumatology | DX: M17.0 Bilateral primary osteoarthritis of knee (principal) | CPT/HCPCS: 20610; 99212; J2003; J3301 ==